=== PATIENT | female | born 1950 | race Two or more races ===

== ENCOUNTER 2020-08-11 10:21 | Outpatient (CLI) | payer OTHER | END 2020-08-11 10:28 | disposition home or self-care (01) | LOC: LAB 10:21 | PROVIDERS: ATTEND Orthopaedic Surgery | DX: E21.2 Other hyperparathyroidism (principal); E55.9 Vitamin D deficiency, unspecified; M85.88 Other specified disorders of bone density and structure, other site; E88.89 Other specified metabolic disorders; M81.8 Other osteoporosis without current pathological fracture; E56.1 Deficiency of vitamin K ==